=== PATIENT | male | born 1980 | race American Indian/Alaskan Native ===

== ENCOUNTER 2016-11-23 06:14 | Emergency (ER) | payer SELFPAY ==
[2016-11-23 06:21] VITALS: BP 149/75; PULSE 106; RESP 16; TEMP 98.8; O2SAT 95
--- NOTE | 2016-11-23 06:39 | EDPHY ---
HPI/HX/ROS/PE/MDM Narrative: Chief complaint: Fever and chills HPI: 36-year-old male woke this morning with fevers and chills which lasted for about an hour and a half. He states that these resolved just prior to coming here and now he feels normal. He was concerned because he was recently started on Cymbalta 3 days ago. After eating label instructions he was concerned he might be having an adverse reaction to the medication. She denies any chest pain or shortness of breath. No nausea or vomiting. No cough. No abdominal pain. No urinary symptoms. No skin rashes. No sore throat or headache. He did not take any medications for this. He has otherwise been in his normal state of health. Patient states that he also did start Lyrica about 7 days ago. He has a past medical history depression. Denies being suicidal at this time. Also has a history of a gastric bypass in the past. He is currently without complaint feels normal. ROS: 10 point Review of Systems is negative except as noted in the HPI. Physical exam: Gen: Awake, Alert, No Distress HEENT: Nose: no rhinorrhea Eyes: PERRLA, EOMI Mouth: Moist mucosa Neck: Supple, no JVD Chest: nontender, lungs clear to auscultation Heart: S1, S2 normal, no murmur Abd: Soft, non-tender, no guarding Back: no CVA tenderness, no midline tenderness Ext: no edema, non-tender Skin: no rash Neuro: CN II-XII intact, Sensation grossly intact, Strength 5/5 in bilateral upper and lower extremities ED Course: Well-appearing 28-year-old male who is afebrile and head initially tachycardic but heart rate was 92 on my examination. He has no focal source of infection. He is afebrile here. He is presenting with concerns about and reaction to Cymbalta. I do not see any evidence of serotonin syndrome at this time which would be my primary concern. He is very well appearing and feels normal. Symptoms are likely secondary to a viral illness. Will discharge him with instructions to take ibuprofen and Tylenol as needed for fevers or chills. He will follow up with his doctor return to the emergency department for any concerns. General Time Seen by Provider: 11/23/16 06:31 Initial Vital Signs: Initial Vital Signs Temperature (C) 37.1 C 11/23/16 06:19 Heart Rate 106 H 11/23/16 06:19 Respiratory Rate 16 11/23/16 06:19 Blood Pressure 149/75 H 11/23/16 06:19 O2 Sat (%) 95 11/23/16 06:19 O2 Delivery Mode Room Air Allergies/Adverse Reactions: bupropion HCl [From Wellbutrin] Allergy (Verified 11/23/16 06:17) Home Medications: Medication Instructions Recorded Duloxetine HCl 11/23/16 Lyrica 11/23/16 Departure - Departure Disposition: Home, Routine, Self-Care Clinical Impression: Chills Condition: Good Instructions: Fever in Adults (ED) Additional Instructions: Follow up with your primary care physician in 2-3 days. You may take ibuprofen and acetaminophen for fevers chills, aches and pains. Return to the emergency department for uncontrolled fevers or chills, chest pain , shortness of breath, difficulty breathing, abdominal pain, or any other concerns. Referrals: Lisa Osorio MD [Primary Care Provider] - As per Instructions
== END 2016-11-23 07:02 | disposition home or self-care (01) ==
DX: R68.83 Chills (without fever) (principal)

== ENCOUNTER 2016-12-06 21:04 | Observation (INO) | payer SELFPAY ==
[2016-12-06] MEDS ORDERED: FAMOTIDINE 20 MG/NACL 50 ML IV ONE (21:53)
[2016-12-06] MEDS ORDERED: ONDANSETRON 4 MG/2 ML VIAL IVP ONE (21:53)
[2016-12-06] MEDS ORDERED: MAALOX/LIDO/HYOSC GI COCKTAIL 55 ML BOTTLE PO ONE (21:53)
[2016-12-06] MEDS ORDERED: NS 1,000 ML IV ONE (21:53)
[2016-12-06 22:02] LABS: % IMMATURE GRANULYOCYTES 0.2 % (0.0-1.1); ABSOLUTE IMMATURE GRANULOCYTES 0.02 10^3/uL (0.00-0.10); ADD DIFF? NO; ADD MORPH? NO; ADD SCAN? NO; ATYPICAL LYMPHOCYTE FLAG 10 (0-99); FRAGMENT RBC FLAG 0 (0-99); HEMATOCRIT 41.7 % (40.0-51.0); HEMOGLOBIN 14.7 g/dL (13.7-17.5); LEFT SHIFT FLG 0 (0-99); LIPEMIA HEMOLYSIS FLAG 90 (0-99); MEAN CELL HEMOGLOBIN 34.2 pg (27.9-34.1); MEAN CELL HEMOGLOBIN CONCENTR. 35.3 g/dL (32.4-36.7); MEAN PLATELET VOLUME 8.6 fL (8.7-11.7); PLATELET CLUMPS FLAG 10 (0-99); PLATELET COUNT 264 10^3/uL (150-400); RED CELL DISTRIBUTION WIDTH 12.6 % (11.5-15.2)
[2016-12-06 22:19] LABS: ALANINE AMINOTRANSFERASE 41 IU/L (21-72); ALBUMIN 3.9 g/dL (3.5-5.0); ALKALINE PHOSPHATASE 75 IU/L (38-126); ANION GAP 8 mEq/L (8-16); ASPARTATE AMINOTRANSFERASE 26 IU/L (17-59); BILIRUBIN,TOTAL 0.8 mg/dL (0.1-1.4); BILIRUBIN-CONJUGATED 0.6 mg/dL (0.0-0.5); BILIRUBIN-UNCONJUGATED 0.2 mg/dL (0.0-1.1); CALCIUM 9.4 mg/dL (8.5-10.4); CARBON DIOXIDE 23 mEq/l (22-31); CHLORIDE 107 mEq/L (97-110); CREATININE 0.9 mg/dL (0.7-1.3); GLOMERULAR FILTRATION RATE > 60; GLUCOSE 88 mg/dL (70-100); POTASSIUM 4.7 mEq/L (3.5-5.2); SODIUM 138 mEq/L (134-144)
[2016-12-06] MEDS ORDERED: PANTOPRAZOLE SODIUM 40 MG in NS 100 ML IV ONE (22:23)
--- NOTE | 2016-12-06 22:44 | EDPHY ---
H & P Stated Complaint: abd pain HPI/ROS: Chief complaint: Abdominal pain, blood in stools History of present illness: This is a 36-year-old male who presents to the emergency department for evaluation of abdominal pain. He has subsequently developed blood in his stools. He does have a history of peptic ulcer disease. He reports approximately 10 days ago he had a urinary tract infection which was treated with Bactrim, he states his pain was treated with 800 mg of ibuprofen multiple times daily. He was on ibuprofen for approximately a week. He started to develope epigastric pain and stopped it. Over the last 1-2 days he started to notice blood in his stools, both bright red and dark blood. He denies alleviating factors. He denies other associated signs or symptoms including no fevers, no nausea or vomiting, no systemic symptoms such as fatigue , lightheadedness or dizziness. Review of systems: A 10 point review of systems was obtained and other than described above was negative - Personal History Current Tetanus/Diphtheria Vaccine: Yes Current Tetanus Diphtheria and Acellular Pertussis (TDAP): Yes - Medical/Surgical History Hx Asthma: Yes Hx Chronic Respiratory Disease: No Hx Diabetes: No Hx Cardiac Disease: No Hx Renal Disease: No Hx Cirrhosis: No Hx Alcoholism: No Hx HIV/AIDS: No Hx Splenectomy or Spleen Trauma: No Other PMH: gastric bypass, depression, anxiety - Social History Smoking Status: Heavy smoker - Physical Exam Exam: General Appearance: Alert, nontoxic. Eyes: Pupils equal and round no pallor or injection. ENT, Mouth: Mucous membranes moist. Respiratory: There are no retractions, lungs are clear to auscultation. Cardiovascular: Regular rate and rhythm. Gastrointestinal: Bowel sounds normal. Abdomen is soft, nondistended. There is tenderness in the epigastric region. Neurological: Alert and oriented. Strength and sensation intact and symmetrical. Skin: Warm and dry, no rashes. Musculoskeletal: Neck is supple non tender. Extremities are symmetrical, full range of motion. Psychiatric: Patient is oriented X 3, there is no agitation. Constitutional: Initial Vital Signs Temperature (C) 36.6 C 12/06/16 21:17 Heart Rate 87 12/06/16 21:17 Respiratory Rate 16 12/06/16 21:17 Blood Pressure 154/83 H 12/06/16 21:17 O2 Sat (%) 100 12/06/16 21:17 O2 Delivery Mode Room Air Allergies/Adverse Reactions: bupropion HCl [From Wellbutrin] Allergy (Verified 12/06/16 21:16) ibuprofen Allergy (Verified 12/06/16 21:16) Home Medications: Medication Instructions Recorded Duloxetine HCl 11/23/16 Lyrica 11/23/16 Medical Decision Making ED Course/Re-evaluation: Patient discussed with my secondary supervising physician Dr. Perez Mayfield. Patient presents to the emergency department for epigastric pain and blood in the stools. He is nontoxic. Afebrile and vital signs are stable. Blood studies are largely unremarkable. However stool occult is positive. I am concerned for an acute GI bleed. Therefore he will be admitted to the hospitalist service. Dr. Apolonia Hou has kindly agreed to admit the patient. Gastroenterology is consulted, Dr. Bartholomew will see the patient in consultation. The plan has been discussed with the patient voiced understanding and agreement with it. Differential Diagnosis: Included but not limited to GI bleed multiple etiologies bleeding ulcer, gastritis, biliary tract disease, pancreatitis - Data Points Laboratory Results: Laboratory Results 12/06/16 21:52 12/06/16 21:52 12/06/16 12/06/16 12/06/16 21:56 21:52 21:52 WBC 9.03 10^3/uL 10^3/uL (3.80-9.50) RBC 4.30 10^6/uL L 10^6/uL (4.40-6.38) Hgb 14.7 g/dL g/dL (13.7-17.5) Hct 41.7 % % (40.0-51.0) MCV 97.0 fL fL (81.5-99.8) MCH 34.2 pg H pg (27.9-34.1) MCHC 35.3 g/dL g/dL (32.4-36.7) RDW 12.6 % % (11.5-15.2) Plt Count 264 10^3/uL 10^3/uL (150-400) MPV 8.6 fL L fL (8.7-11.7) Neut % (Auto) 63.1 % % (39.3-74.2) Lymph % (Auto) 29.6 % % (15.0-45.0) Granite % (Auto) 5.6 % % (4.5-13.0) Eos % (Auto) 0.8 % % (0.6-7.6) Baso % (Auto) 0.7 % % (0.3-1.7) Nucleat RBC Rel Count 0.0 % % (0.0-0.2) Absolute Neuts (auto) 5.70 10^3/uL 10^3/uL (1.70-6.50) Absolute Lymphs (auto) 2.67 10^3/uL 10^3/uL (1.00-3.00) Absolute Monos (auto) 0.51 10^3/uL 10^3/uL (0.30-0.80) Absolute Eos (auto) 0.07 10^3/uL 10^3/uL (0.03-0.40) Absolute Basos (auto) 0.06 10^3/uL 10^3/uL (0.02-0.10) Absolute Nucleated RBC 0.00 10^3/uL 10^3/uL (0-0.01) Immature Gran % 0.2 % % (0.0-1.1) Immature Gran # 0.02 10^3/uL 10^3/uL (0.00-0.10) Sodium 138 mEq/L mEq/L (134-144) Potassium 4.7 mEq/L mEq/L (3.5-5.2) Chloride 107 mEq/L mEq/L (97-110) Carbon Dioxide 23 mEq/l mEq/l (22-31) Anion Gap 8 mEq/L mEq/L (8-16) BUN 13 mg/dL mg/dL (7-23) Creatinine 0.9 mg/dL mg/dL (0.7-1.3) Estimated GFR > 60 Glucose 88 mg/dL mg/dL (70-100) Calcium 9.4 mg/dL mg/dL (8.5-10.4) Total Bilirubin 0.8 mg/dL mg/dL (0.1-1.4) Conjugated Bilirubin 0.6 mg/dL H mg/dL (0.0-0.5) Unconjugated Bilirubin 0.2 mg/dL mg/dL (0.0-1.1) AST 26 IU/L IU/L (17-59) ALT 41 IU/L IU/L (21-72) Alkaline Phosphatase 75 IU/L IU/L (38-126) Total Protein 7.0 g/dL g/dL (6.3-8.2) Albumin 3.9 g/dL g/dL (3.5-5.0) Lipase 96.0 IU/L IU/L (23-300) Stool Occult Bld Scrn POSITIVE H (NEGATIVE) Medications Given: Discontinued Medications Sodium Chloride (Ns) 1,000 mls @ 0 mls/hr IV ONCE ONE PRN Reason: Wide Open Stop: 12/06/16 21:54 Last Admin: 12/06/16 22:17 Dose: 1,000 mls Famotidine/Sodium Chloride (Pepcid 20 Mg (Premix)) 50 mls @ 200 mls/hr IV EDNOW ONE Stop: 12/06/16 22:07 Last Admin: 12/06/16 22:16 Dose: 50 mls Miscellaneous Medication (Gi Cocktail) 55 ml PO EDNOW ONE Stop: 12/06/16 21:54 Last Admin: 12/06/16 22:17 Dose: 55 ml Ondansetron HCl (Zofran) 4 mg IVP EDNOW ONE Stop: 12/06/16 21:54 Last Admin: 12/06/16 22:17 Dose: 4 mg Departure - Departure Disposition: [facility] Inpatient Acute Clinical Impression: GI bleed Qualifiers: GI bleed type/associated pathology: unspecified gastrointestinal hemorrhage type Qualified Code(s): K92.2 - Gastrointestinal hemorrhage, unspecified Condition: Good
[2016-12-06] MEDS ORDERED: ACETAMINOPHEN 325 MG TAB PO PRN (23:03)
[2016-12-06] MEDS ORDERED: ONDANSETRON DISINTEGRATING 4 MG TAB PO PRN (23:03)
[2016-12-06] MEDS ORDERED: ONDANSETRON 4 MG/2 ML VIAL IVP PRN (23:03)
--- NOTE | 2016-12-06 23:31 | GHP ---
[f rep st] HISTORY AND PHYSICAL DATE OF ADMISSION: 12/06/2016 CHIEF COMPLAINT: Bloody stools. HISTORY OF PRESENT ILLNESS: This is a 36-year-old male with a history of gastric bypass and a previ ous history of peptic ulcer disease that they believed was secondary to the bypass. He states that he had a urinary tract infection about a week ago and was given Bactrim, and told to take ibuprofen as needed for fever. He has been taking about 2-3 of ibuprofen per day. He states that yesterday a nd today he has had bright red blood in his stool as well as melena. He does admit to a little bit of epigastric pain and nausea. No dizziness. No chest pain. He is taking omeprazole at home. REVIEW OF SYSTEMS: A 10-point review of systems was obtained and other than HPI was negative. PAST MEDICAL HISTORY: 1. Status post gastric bypass surgery. 2. Recent urinary tract infection. 3. Depression and anxiety. MEDICATIONS: Include omeprazole, Lyrica, Cymbalta, and multivitamins. SOCIAL HISTORY: Does smoke. No alcohol. FAMILY HISTORY: Reviewed, noncontributory. PHYSICAL EXAM: VITAL SIGNS: Afebrile, blood pressure 141/94, heart rate is 63, oxygen saturation 9 6% on room air. GENERAL: The patient is well developed, no apparent distress. HEENT: Nonicteric sclerae. Extraocular movements intact. Moist mucous membranes. NECK: Supple. No thyromegaly. L UNGS: Good effort. Clear to auscultation bilaterally. CARDIOVASCULAR: Regular rate and rhythm. No murmurs, rubs or gallops. ABDOMEN: Positive bowel sounds. Soft, nontender, nondistended. No h epatosplenomegaly. EXTREMITIES: No clubbing, cyanosis, or edema. SKIN: Without rash or intact. NEUROLOGIC: Alert and oriented x3. Moves all 4 extremities equally. PSYCH: Normal mood and affec t. LABS: Chemistry is normal including a normal BUN. Hemoglobin is also normal at 14. Occult stool p ositive for blood. ASSESSMENT: This is a 36-year-old male with previous history of ulcer presenting with melena. PLAN: 1. Probable upper GI bleed. The patient does not have an elevated BUN nor does he have any anemia, but due to reported melena he probably does have upper GI bleed. We will continue IV Protonix, and GI has been called and will do an endoscopy in the morning. 2. Recent urinary tract infection. Sounds like that he is just about finishing his antibiotics. W e will continue these once med reconciliation is done. 3. Depression and anxiety. /[id number]/MODL
[2016-12-07] MEDS: NS 1,000 ML IV SCH ×2 (01:52→11:01)
[2016-12-07 05:50] LABS: % IMMATURE GRANULYOCYTES 0.3 % (0.0-1.1); ABSOLUTE IMMATURE GRANULOCYTES 0.02 10^3/uL (0.00-0.10); ADD DIFF? NO; ADD MORPH? NO; ADD SCAN? NO; ATYPICAL LYMPHOCYTE FLAG 10 (0-99); FRAGMENT RBC FLAG 0 (0-99); HEMATOCRIT 38.6 % (40.0-51.0); HEMOGLOBIN 13.3 g/dL (13.7-17.5); LEFT SHIFT FLG 0 (0-99); LIPEMIA HEMOLYSIS FLAG 90 (0-99); MEAN CELL HEMOGLOBIN 34.1 pg (27.9-34.1); MEAN CELL HEMOGLOBIN CONCENTR. 34.5 g/dL (32.4-36.7); MEAN PLATELET VOLUME 9.2 fL (8.7-11.7); PLATELET CLUMPS FLAG 10 (0-99); PLATELET COUNT 224 10^3/uL (150-400); RED CELL DISTRIBUTION WIDTH 12.7 % (11.5-15.2)
[2016-12-07 06:04] LABS: ALANINE AMINOTRANSFERASE 36 IU/L (21-72); ALBUMIN 3.1 g/dL (3.5-5.0); ALKALINE PHOSPHATASE 62 IU/L (38-126); ANION GAP 4 mEq/L (8-16); ASPARTATE AMINOTRANSFERASE 21 IU/L (17-59); BILIRUBIN,TOTAL 0.7 mg/dL (0.1-1.4); CALCIUM 8.6 mg/dL (8.5-10.4); CARBON DIOXIDE 26 mEq/l (22-31); CHLORIDE 110 mEq/L (97-110); GLOMERULAR FILTRATION RATE > 60; GLUCOSE 74 mg/dL (70-100); POTASSIUM 4.6 mEq/L (3.5-5.2); SODIUM 140 mEq/L (134-144); TOTAL PROTEIN 5.9 g/dL (6.3-8.2)
[2016-12-07 07:56] VITALS: RESP 16
[2016-12-07] MEDS ORDERED: PANTOPRAZOLE SODIUM 40 MG in NS 100 ML IV SCH (09:00)
--- NOTE | 2016-12-07 10:28 | GCON ---
[f rep st] CONSULTATION DATE OF CONSULTATION: 12/07/2016 REFERRING PHYSICIAN: Apolonia Hou MD REASON FOR CONSULTATION: Melena. Dr. Hou, thank you very kindly for asking me to evaluate this patient in consultation for chief co mplaint of melena. HISTORY OF PRESENT ILLNESS: He is a 36-year-old gentleman who developed black tarry stools about a week ago. He was given ibuprofen for lower pelvic and what sounds like dysuria related pain from e UTI. He was taking about 4 tablets of ibuprofen a few times a day for about 4 days. A few days i nto taking the ibuprofen, he noted his stools were black and tarry and somewhat more frequent. He h as been also suffering with a bit of upper abdominal discomfort. He has had a previous gastric ulce r involving a Martha-en-Y gastric bypass anastomosis with bleeding remotely. He has had a Martha-en-Y g astric bypass for obesity and has lost close to 300 pounds from this operation, which was in the . He denies any other bleeding disorders. He does not take any other blood thinners. He has not had any hematemesis. There has been no hematochezia. His initial hematocrit on presentation to the emergency room was 41.7, this morning it is 38.6. He has not had any further melena. His BUN is normal at 11. I am asked to assist with further evaluation and management of the melena. PAST MEDICAL HISTORY: Significant for: 1. Morbid obesity. 2. Depression. 3. Anxiety. PAST SURGICAL HISTORY: Martha-en-Y gastric bypass in the late . He reports this was done for ob esity and he has been successful in losing close to 300 pounds and has maintained the weight loss. MEDICATIONS: On admission include Cymbalta and Lyrica. He has also recently been on Bactrim and ib uprofen as per the HPI, but is not taking these currently. ALLERGIES: Bupropion and also listed as ibuprofen. SOCIAL HISTORY: The patient lives in [place]. He is . He has no children. 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 He smokes tobacco but no alcohol. No substance abuse history. FAMILY HISTORY: Significant for ulcer disease in his mom. REVIEW OF SYSTEMS: CONSTITUTIONAL: He has been mildly weak and a little fatigued since the onset o f this illness. His appetite has been somewhat poor but he has not lost any further unintentional w eight. No night sweats or fever. HEENT: No headache. No epistaxis. No sore throat. No difficul ty swallowing. PULMONARY: No cough or shortness of breath. CARDIOVASCULAR: No chest pain or palp itations. GI: As per the HPI, and otherwise unremarkable. MUSCULOSKELETAL: Denies joint pain, sw elling, or deformities. DERMATOLOGIC: No rash, pruritus or jaundice. NEUROLOGIC: No falls, pares thesias or focal motor weakness. ENDOCRINE: No heat or cold intolerance. No polyuria or polydipsi a. GENITOURINARY: He has had some ongoing urinary frequency and some nocturia, but no more dysuria . He has had a recent urinary tract infection that he says he feels is not completely treated. The re is no flank pain. No hematuria. HEMATOLOGIC: No epistaxis or bruising. PHYSICAL EXAM: VITAL SIGNS: Blood pressure is 119/77, with a mean arterial pulse of 91, his heart rate is 44 and regular. Admission heart rate was 63. Respirations are 16, oxygenation is 96% on ro om air. Temperature current is 36.6. GENERAL: Alert and awake, healthy-appearing male, no acute d istress. HEENT: Normocephalic, atraumatic. Neck supple. Oropharynx clear without blood. Nares a re clear without blood. Sclerae anicteric. NECK: Supple. No lymphadenopathy. PULMONARY: Lungs clear to auscultation bilaterally. CARDIOVASCULAR: Regular rate and rhythm without murmur, rub, or gallop. No pedal edema. GI: Abdomen is soft, nondistended. Normal bowel sounds. No organomegal y. No ascites. No tenderness, rebound or guarding. No palpable organomegaly. His previous surgic al scars are well healed and without herniation, and seem normal in appearance. MUSCULOSKELETAL: N ormal gait and station. No joint deformity or swelling. DERMATOLOGIC: Normal without cyanosis. S kin is of normal color. No jaundice or rash. NEUROLOGIC: Alert to person, place, and time. He is able to ambulate without ataxia. Motor is nonfocal and seems symmetric in strength. DATABASE: Includes sodium 140, potassium 4.6, chloride 110, bicarbonate 26, BUN 11, creatinine 1.0, AST 21, ALT 36, alkaline phosphatase 62, albumin 3.1, lipase 96. White blood count 7.6, hematocrit 38.6, platelets are 224. IMPRESSION: 1. Melena. 2. Mild anemia, likely secondary to acute blood loss. 3. Acute nonsteroidal use, likely precipitating gastrointestinal bleeding and resulting in some gas trointestinal toxicity. 4. Morbid obesity, status post Martha-en-Y gastric bypass. RECOMMENDATIONS: 1. Clear liquid diet for now, but n.p.o. after lunch today. 2. Upper endoscopy will be scheduled later this afternoon to interrogate his complaints of abdomina l pain and melena. 3. Obviously withhold any further nonsteroidal medications. 4. Serial hematocrits q.4 hours. 5. Protonix 80 mg bolus followed by 8 mg/hour. 6. Further recommendations to follow his endoscopic evaluation today. /[id number]/MODL
[2016-12-07] MEDS ORDERED: NICOTINE POLACRILEX 2 MG GUM B PRN (11:07)
[2016-12-07] MEDS: PREGABALIN 75 MG CAP PO SCH ×2 (11:15→18:14)
[2016-12-07] MEDS ORDERED: MIDAZOLAM 2 MG/2 ML VIAL ONE (16:02)
[2016-12-07] MEDS ORDERED: PROPOFOL/EMULSION 500 MG/50 ML BOTTLE IV ONE (16:02)
[2016-12-07] MEDS ORDERED: ONDANSETRON 4 MG/2 ML VIAL ONE (16:41)
[2016-12-07] MEDS ORDERED: SUCRALFATE 1 GM/10 ML UDCUP PO SCH (17:30)
--- NOTE | 2016-12-07 17:55 | GDS ---
[f rep st] DISCHARGE SUMMARY DISCHARGE DIAGNOSES: Include: 1. Acute upper gastrointestinal bleed, presumed secondary to irritation of previous gastric bypass. 2. Depression. 3. Anxiety. 4. History of gastric bypass. 5. Tobacco abuse. HISTORY OF PRESENT ILLNESS: A 36-year-old male with a recent previous history of gastric bypass, wh o presented with bloody stools. For details of the patient's initial presentation, please see the h istory and physical dated 12/06/2016. CONSULTATIVE SERVICES ON THIS PATIENT: Include Gastroenterology. PROCEDURES ON THIS PATIENT: On 12/07/2016, patient had an EGD that showed irritation and erosion of the gastric bypass. No active bleeding. HOSPITAL COURSE BY ISSUE: 1. Acute upper GI bleed. Gastroenterology did perform EGD and did not feel there were signs of acu te bleeding, but suspected inflammation, irritation noted at the gastric bypass site was likely the etiology, recommending Carafate liquid orally 3 times a day with meals to allow for healing of this tissue. Patient is to follow in the outpatient primary care setting, as well as Gastroenterology in the next 1-2 months. 2. Depression/anxiety. Patient was continued on his home medications without alteration. 3. Tobacco abuse. Patient was provided with nicotine gum during his inpatient stay. MEDICATIONS AT THE TIME OF DISPOSITION: Please reference medication reconciliation. Of note, ian sheehan's home meds were continued with the addition of Carafate t.i.d. at discharge. PENDING STUDIES AT THE TIME OF THIS DICTATION: None. FOLLOWUP APPOINTMENTS: 1. With PCP for long-term management of his medical comorbidities. 2. Gastroenterology in the next 1-2 months for postdischarge, post EGD followup. I spent greater than 30 minutes in the planning and coordination of this discharge. /[id number]/MODL
[2016-12-07 17:56] VITALS: BP 132/89; PULSE 71; TEMP 98.5; O2SAT 91
--- NOTE | 2016-12-07 19:20 | GPN ---
[f rep st] PROCEDURE NOTE PROCEDURE: Esophagogastroduodenoscopy. INDICATION: Melena in the setting of nonsteroidal use, history of Martha-en-Y gastric bypass. CONSENT: Procedure consent was obtained from Mr. Metzger after the risks and benefits of endoscop y and anesthesia were discussed in detail. All questions were answered and informed consent was obt ained. COMPLICATIONS: None. ESTIMATED BLOOD LOSS: None. ANALYTICS INTERN: Dr. Bartholomew. ENDOSCOPY STAFF: Lisa. ANESTHESIA: Provided by Dr. Encinas. Procedure monitoring is continuous per anesthesiology protocol . Plan was for monitored anesthesia care with propofol. ASA class is 2. PROCEDURE DESCRIPTION: Mr. Metzger was placed into the left lateral decubitus position. An oxyge n mask was placed. Propofol was administered through his IV after a time-out was performed. The Ol ympus endoscope was placed into the oropharynx. Under direct visualization, the tubular esophagus w as intubated without difficulty. The endoscope was advanced ultimately down to the alimentary limb of the Martha-en-Y gastric bypass. FINDINGS: The esophagus was approximately 40 cm in length and was normal in its entirety. The Z-li ne was normal. There was no evidence of esophageal varices, esophagitis or esophageal ulceration. The gastric pouch was normal in appearance and small in size. The anastomosis to the jejunum was se en. This was somewhat eroded, erythematous and slightly granular, but no active bleeding or ulcerat ion. There was a candy cane shape loop of small bowel (jejunum) that was anastomosed to the gastric pouch and again, was slightly granular and erythematous. There was no active bleeding. The blind end of the proximal (efferent) limb was healthy with a staple line and no blood. The alimentary (ef ferent) limb was also normal down to the length of the endoscope. I could not find the jejunojejuna l anastomosis, nor could I interrogate the biliary (afferent) limb. There was bile seen within the distal portion of the alimentary limb, but no blood. The small intestine and stomach were decompres sed, and the endoscope removed. IMPRESSION: 1. Normal esophagus. 2. Normal Martha-en-Y gastric bypass anatomy with the finding of minor erosive changes at the jejunal to gastric anastomosis at the exit of the pouch. This is likely nonsteroidal based injury. I coul d not find the jejunojejunal limb anastomosis for evaluation. No blood was seen. RECOMMENDATIONS: 1. Return to [facility] for possible discharge same day. 2. Resume a regular diet that is low residue and small volume consistent with his post gastric bypa ss anatomy diet. 3. Avoid all NSAIDs. 4. He may be discharged home today without further evaluation, in my opinion. 5. Followup will be with his primary care at this time. I will contact the hospitalist to alert th em of the findings and hopefully plan for his discharge. 6. In regard to medical management, I would feel that a proton pump inhibitor would not be of benef it for him given his gastric bypass and that the irritation at the anastomosis is likely nonsteroida l. Carafate, however, 1 g suspension p.o. with meals 3 times daily for approximately 2 weeks will b e of benefit and should be given. I will discuss this with his hospitalist team. /[id number]/MODL
[2016-12-07] MEDS ORDERED: DULoxetine 60 MG CAP PO SCH (21:00)
[2016-12-08] MEDS ORDERED: FERROUS SULFATE 325 MG TAB PO SCH (09:00)
[2016-12-08] MEDS ORDERED: VITAMIN B COMPLEX 1 EA CAP/TAB PO SCH (09:00)
[2016-12-08] MEDS ORDERED: CHOLECALCIFEROL VIT D3 1,000 UNITS TAB PO SCH (09:00)
== END 2016-12-07 20:00 | disposition home or self-care (01) ==
LOC: INTOOBSV 22:27 → F1N 12-07 00:05
PROVIDERS: ADMIT Internal Medicine; ATTEND Hospitalist
PROC: 0DJ08ZZ Inspection of Upper Intestinal Tract, Via Natural or Artificial Opening Endoscopic (ICD-10-PCS; principal; 2016-12-06)
DX: K92.2 Gastrointestinal hemorrhage, unspecified (principal); T39.395A Adverse effect of other nonsteroidal anti-inflammatory drugs [NSAID], initial encounter; F41.8 Other specified anxiety disorders; F17.210 Nicotine dependence, cigarettes, uncomplicated; E66.9 Obesity, unspecified; Z87.440 Personal history of urinary (tract) infections; Z98.84 Bariatric surgery status; Z87.11 Personal history of peptic ulcer disease; Z68.23 Body mass index [BMI] 23.0-23.9, adult
CPT/HCPCS: 96365; G0378; J2250; J2405; J2704

== ENCOUNTER 2017-01-09 14:54 | Emergency (ER) | payer MEDICAID ==
[2017-01-09 15:00] VITALS: PULSE 64
[2017-01-09] MEDS ORDERED: MAALOX/LIDO/HYOSC GI COCKTAIL 55 ML BOTTLE PO ONE (16:10)
[2017-01-09] MEDS ORDERED: PANTOPRAZOLE SODIUM 40 MG in NS 100 ML IV ONE (16:11)
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
[2017-01-09 16:53] LABS: % IMMATURE GRANULYOCYTES 0.4 % (0.0-1.1); ABSOLUTE IMMATURE GRANULOCYTES 0.03 10^3/uL (0.00-0.10); ADD DIFF? NO; ADD MORPH? NO; ADD SCAN? NO; ATYPICAL LYMPHOCYTE FLAG 0 (0-99); FRAGMENT RBC FLAG 0 (0-99); HEMATOCRIT 39.8 % (40.0-51.0); HEMOGLOBIN 14.2 g/dL (13.7-17.5); LEFT SHIFT FLG 0 (0-99); LIPEMIA HEMOLYSIS FLAG 90 (0-99); MEAN CELL HEMOGLOBIN 34.8 pg (27.9-34.1); MEAN CELL HEMOGLOBIN CONCENTR. 35.7 g/dL (32.4-36.7); MEAN CELL VOLUME 97.5 fL (81.5-99.8); MEAN PLATELET VOLUME 9.3 fL (8.7-11.7); PLATELET CLUMPS FLAG 10 (0-99); PLATELET COUNT 169 10^3/uL (150-400); RED BLOOD CELL COUNT 4.08 10^6/uL (4.40-6.38); RED CELL DISTRIBUTION WIDTH 13.1 % (11.5-15.2)
[2017-01-09 17:20] LABS: ALANINE AMINOTRANSFERASE 29 IU/L (21-72); ALBUMIN 3.6 g/dL (3.5-5.0); ALKALINE PHOSPHATASE 74 IU/L (38-126); ANION GAP 7 mEq/L (8-16); ASPARTATE AMINOTRANSFERASE 23 IU/L (17-59); BILIRUBIN,TOTAL 1.1 mg/dL (0.1-1.4); BILIRUBIN-CONJUGATED 0.4 mg/dL (0.0-0.5); BILIRUBIN-UNCONJUGATED 0.7 mg/dL (0.0-1.1); CALCIUM 8.9 mg/dL (8.5-10.4); CARBON DIOXIDE 24 mEq/l (22-31); CHLORIDE 108 mEq/L (97-110); CREATININE 0.9 mg/dL (0.7-1.3); GLOMERULAR FILTRATION RATE > 60; GLUCOSE 88 mg/dL (70-100); SODIUM 139 mEq/L (134-144); TOTAL PROTEIN 6.1 g/dL (6.3-8.2)
[2017-01-09 17:45] VITALS: BP 154/93; RESP 16; TEMP 98.4; O2SAT 97
== END 2017-01-09 17:42 | disposition home or self-care (01) ==
DX: K27.9 Peptic ulcer, site unspecified, unspecified as acute or chronic, without hemorrhage or perforation (principal); J45.909 Unspecified asthma, uncomplicated; F17.200 Nicotine dependence, unspecified, uncomplicated
CPT/HCPCS: 96365

== ENCOUNTER → 2017-01-16 | Outpatient (CLI) | payer MEDICAID | LOC: FIMAGING 16:29 | PROVIDERS: ATTEND Family Medicine | DX: M54.6 Pain in thoracic spine (principal) ==